=== PATIENT | female | born 1945 | race Caucasian/White ===

== ENCOUNTER → 2024-02-18 10:18 | Outpatient (REF) | payer OTHER, SELFPAY | LOC: HWRCS 10:18 | PROVIDERS: ATTENDING PHYSICIAN Internal Medicine Cardiovascular Disease; FAMILY PHYSICIAN Family Medicine | DX: I34.0 Nonrheumatic mitral (valve) insufficiency (principal) | CPT/HCPCS: 93306 ==

== ENCOUNTER → 2025-03-31 10:02 | Outpatient (REF) | payer OTHER, SELFPAY | LOC: HWRCS 10:02 | PROVIDERS: ATTENDING PHYSICIAN Internal Medicine Cardiovascular Disease; FAMILY PHYSICIAN Family Medicine | DX: I34.0 Nonrheumatic mitral (valve) insufficiency (principal) | CPT/HCPCS: 93306 ==